=== PATIENT | female | born 1965 | race Caucasian/White ===

== ENCOUNTER 2019-07-17 08:12 | Day surgery (SDC) | payer MEDICAID ==
[~2019-07-17] VITALS: Ht 157.5 cm; Wt 97.5 kg
[2019-07-17 09:19] LABS: HCG,QUAL RESULT NEGATIVE (NEGATIVE)
[2019-07-17] MEDS ORDERED: SIMETHICONE 40 MG/0.6 ML ML ONE (09:36)
[2019-07-17] MEDS ORDERED: MIDAZOLAM HCL 5 MG/5 ML VIAL ONE (09:37)
[2019-07-17] MEDS: MIDAZOLAM HCL 5 MG/5 ML VIAL ONE ×4 (10:15→10:40)
[2019-07-17] MEDS: MEPERIDINE HCL/PF 100 MG/ML AMP ONE ×2 (10:15→10:40)
[2019-07-17 14:39] VITALS: BP_SYST 141
== END 2019-07-17 12:00 | disposition home or self-care (01) ==
LOC: SDS 08:12 → SMU 08:14 → SDS 12:00
PROVIDERS: ATTEND Internal Medicine Gastroenterology
DX: K29.51 Unspecified chronic gastritis with bleeding (principal); K52.9 Noninfective gastroenteritis and colitis, unspecified; K57.31 Diverticulosis of large intestine without perforation or abscess with bleeding; K22.70 Barrett's esophagus without dysplasia; K76.0 Fatty (change of) liver, not elsewhere classified; I10 Essential (primary) hypertension; K44.9 Diaphragmatic hernia without obstruction or gangrene; K64.8 Other hemorrhoids; K21.0 Gastro-esophageal reflux disease with esophagitis; E11.9 Type 2 diabetes mellitus without complications; E78.5 Hyperlipidemia, unspecified; Z90.49 Acquired absence of other specified parts of digestive tract
CPT/HCPCS: 36415; 43239; 45380; 82962; 84703; 87081; 88305; 88312; 88313; 99152; J2175; J2250